=== PATIENT | male | born 1965 | race Caucasian/White ===

== ENCOUNTER 2019-10-02 13:38 | Inpatient (IN) | payer BC, OTHER ==
[~2019-10-02] VITALS: Ht 182.9 cm; Wt 59.5 kg
[2019-10-02 14:58] LABS: BASO # 0.1 10^3/uL (0.0-0.2); BASO % 0.7 % (0.0-1.0); EOS % 0.5 % (0.0-3.0); HEMATOCRIT 50.8 % (42.0-52.0); HEMOGLOBIN 16.4 g/dl (13.5-17.5); LYMPH # 1.2 10^3/uL (1.5-5.0); LYMPH % 15.6 % (24.0-44.0); MEAN CORPUSCULAR HEMOGLOBIN 29.1 pg (27.0-33.0); MEAN CORPUSCULAR HGB CONC 32.3 g/dl (32.0-36.5); MEAN CORPUSCULAR VOLUME 90.1 fl (80.0-96.0); MONO # 0.8 10^3/uL (0.0-0.8); MONO % 10.3 % (0.0-5.0); NEUTROPHILS # 5.6 10^3/uL (1.5-8.5); NEUTROPHILS % 72.5 % (36.0-66.0); PLATELET COUNT, AUTOMATED 314 10^3/uL (150-450); RED BLOOD COUNT 5.64 10^6/uL (4.30-6.10); WHITE BLOOD COUNT 7.7 10^3/uL (4.0-10.0)
--- NOTE | 2019-10-02 15:04 | REP ---
Portable chest, 02:37 p.m., single PA view: There are no comparisons. The lung hanna are hyperinflated. There are no infiltrates or pleural effusions. There are no masses or nodules. The cardiac size is normal. The meseret, mediastinum, skeletal structures are unremarkable. Impression: Hyperinflation, otherwise negative portable PA chest. Electronically Signed by Praveen Zamora MD 10/02/2019 02:55 P
[2019-10-02 15:07] LABS: INR 0.97; PROTHROMBIN TIME 12.6 SECONDS (11.8-14.0)
[2019-10-02 15:08] LABS: PARTIAL THROMBOPLASTIN TIME 33.5 SECONDS (25.0-38.4)
--- NOTE | 2019-10-02 15:15 | REP ---
CT brain without contrast: History: CVA. No comparison study. Findings: Preliminary digital laborer high density press radiograph is unremarkable. The visualized paranasal sinuses are clear. There is some vascular calcification in the carotid siphons bilaterally. There is mild generalized atrophy. On soft-tissue window settings, there is low density bilaterally within the central ysd consistent with old pontine lacunar infarction. There is no evidence of intracranial hemorrhage. There is a ill-defined 1 cm area of low density in the periventricular white matter of the right frontoparietal lobe region. This could be a recent periventricular lacunar infarct. There is no CT evidence of cortical infarction. Exam is otherwise unremarkable. Impression: Mild generalized atrophy and vascular calcification. Old appearing lacunar infarcts in the syd. Ill-defined 1 cm low density in the periventricular white matter of the right frontoparietal lobe may be a recent lacunar infarction. No evidence of intracranial hemorrhage or mass. Electronically Signed by Tito Joshi MD 10/02/2019 03:22 P
[2019-10-02 15:39] LABS: BLOOD UREA NITROGEN 13 MG/DL (7-18); CALCIUM LEVEL 9.4 MG/DL (8.5-10.1); CARBON DIOXIDE LEVEL 28 MEQ/L (21-32); CHLORIDE LEVEL 104 MEQ/L (98-107); CK-MB VALUE MASS 1.2 NG/ML (<3.6); CPK CREATINE PHOSPHOKINASE 110 U/L (39-308); CREATININE FOR GFR 0.91 MG/DL (0.70-1.30); GLOMERULAR FILTRATION RATE > 60.0 (>56); GLUCOSE, FASTING 131 MG/DL (70-100); MB/CK RELATIVE INDEX 1.09 (< OR =4); POTASSIUM SERUM 3.9 MEQ/L (3.5-5.1); SODIUM LEVEL 140 MEQ/L (136-145); TROPONIN I < 0.02 NG/ML (< 0.10)
[2019-10-02] MEDS ORDERED: LABETALOL HCL 100 MG/20 ML VIAL IV STA (17:14)
[2019-10-02] MEDS ORDERED: LORazepam 2 MG/ML VIAL (J2060) IV STA (17:14)
[2019-10-02] MEDS ORDERED: hydrALAZINE INJ 20 MG/ML VIAL IV PRN (17:15)
[2019-10-02] MEDS ORDERED: ASPIRIN 81 MG CHEW TABLET PO ONE (17:15)
--- NOTE | 2019-10-02 17:34 | HPEPDOC ---
[facility] Medical History & Physical Date of Admission Oct 02, 2019 Date of Service: Oct 02, 2019 Attending Physician: NACHO GRAVES MD History and Physical CHIEF COMPLAINT: Lower extremity weakness HISTORY OF PRESENT ILLNESS: 54-year-old male with no significant past medical history, presents with lower extremity weakness for the past 3-4 days. Patient does has not seen a doctor in many years, reports bilateral lower extremity weakness which started 4 days ago, has not improved or worsened since then, denies any associated symptoms. His does report that he has mild left-sided facial droop, left lower extremity weakness is slightly worse than right lower extremity. He denies any sensory deficits, denies any upper extremity symptoms. He denies any shortness of breath, chest pain, nausea, vomiting, abdominal pain or diarrhea at this time. In the ED, CT head shows old pontine lacunar infarct and likely recent right-sided paraventricular lacunar infarct. 10 point review of system is negative except for above PAST MEDICAL HISTORY: 1. None. PAST SURGICAL HISTORY: 1. None. SOCIAL HISTORY: Smokes 1.5 packs per day, hasn't smoked for 30 years. Drinks a sixpack every day. Denies drug use FAMILY HISTORY: No family history of cancer or heart disease ALLERGIES: Please see below. HOME MEDICATIONS: Please see below. PHYSICAL EXAMINATION: VITAL SIGNS: Please see below. GENERAL: No distress HEENT: Normocephalic, atraumatic, moist mucous membranes NECK: Supple CARDIOVASCULAR EXAMINATION: S1, S2, no murmurs RESPIRATORY EXAMINATION: Clear to auscultation, no wheezing ABDOMINAL EXAMINATION: Soft, nontender, nondistended, positive bowel sounds EXTREMITIES: Range of motion intact SKIN: No rash NEUROLOGICAL EXAMINATION: Alert and oriented 3, bilateral lower extremity weakness appreciated, left greater than right, difficulty ambulating, patient with shuffling gait, slight left-sided facial droop appreciated, no sensory deficits appreciated throughout. PSYCHIATRIC EXAMINATION: Calm and cooperative LABORATORY DATA: See below. IMAGING: CT head showing old pontine infarct and likely new right paraventricular pontine infarct MICROBIOLOGY: Please see below. ASSESSMENT: 54-year-old male who does not see physicians, smokes 1.5 pack per day is being admitted for acute/subacute stroke. PLAN: 1. Lacunar infarct. CT showing old pontine lacunar infarct and likely new infarct in the right paraventricular region, received aspirin 325 mg in the ED, continue aspirin 81 mg per day, add atorvastatin 40 mg daily, MRI brain, MRA head and neck along with TTE ordered. Neuro checks every 2 hours, neurology consulted (Dr. Arreaga) 2. Hypertension. Undiagnosed, SBP over 200, likely worsened by CVA, symptoms began 3 days ago, will begin controlling hypertension, labetalol 20 g IV ordered followed by hydralazine 10 mg IV as needed every 6 hours for SBP greater than 160. 3. Active smoker. Smoking cessation discussed in detail DVT prophylaxis: Heparin subcutaneous GI prophylaxis: Not needed Vital Signs Vital Signs Date Time Temp Pulse Resp B/P (MAP) Pulse Ox O2 Delivery O2 Flow Rate FiO2 10/02/19 16:15 95 18 191/104 (133) 94 10/02/19 14:17 Room Air 10/02/19 13:39 96.7 Laboratory Data Labs 24H Laboratory Tests 2 10/02/19 14:32: Immature Granulocyte % (Auto) 0.4, Neutrophils (%) (Auto) 72.5H, Lymphocytes (%) (Auto) 15.6L, Monocytes (%) (Auto) 10.3H, Eosinophils (%) (Auto) 0.5, Basophils (%) (Auto) 0.7, Neutrophils # (Auto) 5.6, Lymphocytes # (Auto) 1.2L, Monocytes # (Auto) 0.8, Eosinophils # (Auto) 0.0, Basophils # (Auto) 0.1, Nucleated Red Blood Cells % (auto) 0.0, Prothrombin Time 12.6, Prothromb Time International Ratio 0.97, Activated Partial Thromboplast Time 33.5, Anion Gap 8, Glomerular Filtration Rate > 60.0, Calcium Level 9.4, Total Creatine Kinase 110, Creatine Kinase MB 1.2, Creatine Kinase MB Relative Index 1.09, Troponin I < 0.02 CBC/BMP Laboratory Tests 10/02/19 14:32 Home Medications No Active Prescriptions or Reported Meds Allergies Coded Allergies: No Known Allergies (Unverified , 10/02/19) A-FIB/CHADSVASC A-FIB History Current/History of A-Fib/PAF?: No NACHO GRAVES MD Oct 02, 2019 17:34
[2019-10-02] MEDS: ASPIRIN 81 MG CHEW TABLET PO SCH (17:47)
[2019-10-02] MEDS ORDERED: LORazepam 2 MG/ML VIAL (J2060) As Ordered ONE (17:50)
[2019-10-02 18:43] VITALS: BP 180/100
--- NOTE | 2019-10-02 19:17 | ECGEPIP ---
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
[2019-10-02 20:00] VITALS: BP 160/102
--- NOTE | 2019-10-02 20:46 | REPVR ---
PROCEDURE INFORMATION: Exam: MR Head Without Contrast Exam date and time: 10/02/2019 8:22 PM Age: 54 years old Clinical indication: Walking, difficulty; Patient HX: Falls; Additional info: CVA TECHNIQUE: Imaging protocol: MR of the head without contrast. COMPARISON: CT Head without contrast 10/02/2019 2:29 PM FINDINGS: Brain: Focus of restricted diffusion within the right frontoparietal centrum semiovale, concerning for acute infarct. Multiple chronic small bilateral basal ganglia and pontine lacunar infarcts. Nonspecific T2/FLAIR hyperintensities of the periventricular and deep subcortical white matter, most likely secondary to chronic small vessel ischemic change. No intracranial hemorrhage or extra-axial fluid collection. No evidence of mass effect or midline shift. Ventricles: No ventriculomegaly. Bones/joints: Unremarkable. Soft tissues: Unremarkable. Sinuses: Severe mucosal thickening of the left maxillary sinus. Mastoid air cells: No mastoid effusion. Orbits: Unremarkable. IMPRESSION: 1. Focus of restricted diffusion within the right frontoparietal centrum semiovale, concerning for acute infarct. 2. Severe mucosal thickening of the left maxillary sinus. 3. Other chronic findings, as above. Electronically signed by: Sanford Acosta On 10/02/2019 20:45:53 PM
--- NOTE | 2019-10-02 20:47 | REPVR ---
PROCEDURE INFORMATION: Exam: MR Angiography Neck Without Contrast Exam date and time: 10/02/2019 8:29 PM Age: 54 years old Clinical indication: Weakness; Patient HX: Falls; Additional info: CVA TECHNIQUE: Imaging protocol: Magnetic resonance angiography of the neck without contrast. 3D rendering: MIP and/or 3D reconstructed images were created by the technologist. COMPARISON: MRA BRAIN W/O CONTRAST 10/02/2019 8:08 PM FINDINGS: Right common carotid artery: No significant stenosis or occlusion. Right internal carotid artery: Extracranial segment is patent without evidence of hemodynamically significant stenosis. Right external carotid artery: Unremarkable. Right vertebral artery: No significant stenosis or occlusion. Left common carotid artery: No significant stenosis or occlusion. Left internal carotid artery: Extracranial segment is patent without evidence of hemodynamically significant stenosis. Left external carotid artery: Unremarkable. Left vertebral artery: No significant stenosis or occlusion. IMPRESSION: No hemodynamically significant stenosis. COMMENT: Reference per NASCET criteria for degree of stenosis: Mild: less than 50% stenosis. Moderate: 50-69% stenosis. Severe: 70-94% stenosis. Near occlusion: 95-99% stenosis. Electronically signed by: Sanford Acosta On 10/02/2019 20:47:37 PM
--- NOTE | 2019-10-02 20:47 | REPVR ---
PROCEDURE INFORMATION: Exam: MR Angiogram Head Without Contrast, Arteries Exam date and time: 10/02/2019 8:22 PM Age: 54 years old Clinical indication: Weakness; Additional info: CVA TECHNIQUE: Imaging protocol: MR angiogram head without contrast. Exam focused on the arteries. COMPARISON: MRI-Brain without Contrast 10/02/2019 7:51 PM FINDINGS: Right internal carotid artery: Unremarkable. Intracranial segment is patent with no significant stenosis. No aneurysm. Right anterior cerebral artery: Unremarkable. No occlusion or significant stenosis. No aneurysm. Right middle cerebral artery: Unremarkable. No occlusion or significant stenosis. No aneurysm. Right posterior cerebral artery: Unremarkable. No occlusion or significant stenosis. No aneurysm. Right vertebral artery: Unremarkable. No occlusion or significant stenosis. No aneurysm. Left internal carotid artery: Unremarkable. Intracranial segment is patent with no significant stenosis. No aneurysm. Left anterior cerebral artery: Unremarkable. No occlusion or significant stenosis. No aneurysm. Left middle cerebral artery: Unremarkable. No occlusion or significant stenosis. No aneurysm. Left posterior cerebral artery: Unremarkable. No occlusion or significant stenosis. No aneurysm. Left vertebral artery: Unremarkable. No occlusion or significant stenosis. No aneurysm. Basilar artery: Unremarkable. No occlusion or significant stenosis. No aneurysm. IMPRESSION: No MRA evidence of intracranial arterial occlusion or significant stenosis. Electronically signed by: Sanford Acosta On 10/02/2019 20:46:55 PM
[2019-10-02 20:56] VITALS: BP 160/90
[2019-10-02] MEDS: HEPARIN SOD (PORCINE) 5000 UNITS/ML VIAL (J1644 PER 1000UNITS) SC SCH (21:00)
[2019-10-02] MEDS: ATORVASTATIN 20 MG TAB PO SCH (21:00)
[2019-10-03] VITALS (9 sets, daily range): BP systolic 134–179; BP diastolic 74–100
[2019-10-03 05:54] LABS: HEMATOCRIT 42.8 % (42.0-52.0); HEMOGLOBIN 14.2 g/dl (13.5-17.5); MEAN CORPUSCULAR HEMOGLOBIN 29.8 pg (27.0-33.0); MEAN CORPUSCULAR HGB CONC 33.2 g/dl (32.0-36.5); MEAN CORPUSCULAR VOLUME 89.7 fl (80.0-96.0); PLATELET COUNT, AUTOMATED 285 10^3/uL (150-450); RED BLOOD COUNT 4.77 10^6/uL (4.30-6.10); WHITE BLOOD COUNT 5.6 10^3/uL (4.0-10.0)
[2019-10-03 06:20] LABS: ALBUMIN 3.6 GM/DL (3.2-5.2); ALT/SGPT 21 U/L (12-78); BILIRUBIN,TOTAL 0.1 MG/DL (0.2-1.0); BLOOD UREA NITROGEN 17 MG/DL (7-18); CALCIUM LEVEL 9.7 MG/DL (8.5-10.1); CARBON DIOXIDE LEVEL 30 MEQ/L (21-32); CHLORIDE LEVEL 107 MEQ/L (98-107); CHOLESTEROL LEVEL 174 MG/DL (<200); CHOLESTEROL RISK RATIO 2.558 (<5); CREATININE FOR GFR 0.93 MG/DL (0.70-1.30); GLOMERULAR FILTRATION RATE > 60.0 (>56); GLUCOSE, FASTING 122 MG/DL (70-100); HDL CHOLESTEROL 68 MG/DL (>40); LDL CHOLESTEROL 86 MG/DL (<100); MAGNESIUM LEVEL 2.3 MG/DL (1.8-2.4); NON-HDL-C 106 MG/DL; POTASSIUM SERUM 3.4 MEQ/L (3.5-5.1); SODIUM LEVEL 141 MEQ/L (136-145); TOTAL PROTEIN 7.1 GM/DL (6.4-8.2); TRIGLYCERIDES LEVEL 98 MG/DL (<150)
[2019-10-03] MEDS: HEPARIN SOD (PORCINE) 5000 UNITS/ML VIAL (J1644 PER 1000UNITS) SC SCH ×3 (06:27→20:37)
[2019-10-03] MEDS: ASPIRIN 81 MG CHEW TABLET PO SCH (07:59)
[2019-10-03] MEDS: NICOTINE 21MG/24HR 1 EA TRANSDERMAL TD SCH (08:22)
[2019-10-03] MEDS: amLODIPine 10 MG TAB PO SCH (08:22)
[2019-10-03] MEDS: POTASSIUM CHLORIDE 10 MEQ SR TABLET PO SCH ×2 (08:22→14:01)
[2019-10-03] MEDS ORDERED: METOPROLOL TART 25 MG TABLET PO ONE (13:00)
--- NOTE | 2019-10-03 15:10 | CR ---
DATE OF NEUROLOGY CONSULTATION: 10/03/2019 REFERRING PROVIDER: Linda Hendricks MD Date of admission: 10/02/2019 HISTORY OF PRESENT ILLNESS Jim Singh is a 54-year-old male who did not have any prior documented medical history due to the patient not seeing any doctors for several years. The patient presented with difficulty using his left leg while he was at work. This occurred a few days ago on Wednesday. The patient states that he was noted by his to have slight facial droop on the left side as well. The patient was seen at emergency department and head CT revealed possibility of having a right-sided periventricular acute stroke. The patient was admitted to the hospital. He was started on aspirin 81 mg daily and given Lipitor 40 mg daily as well. The patient did have an MRI which confirmed acute stroke of the semiovale on the right consistent with left arm and leg weakness noted on exam. Facial asymmetry seemed to resolve by the time I had seen him in the ER. The patient is 1-1/2 pack per day smoker and drinks a six-pack of beer every day. He has been counseled to quit tobacco and cut back gradually on his alcohol intake over the next few weeks and discontinue. He will need echocardiogram. MR angiogram of the head and neck did not reveal any critical stenosis. PAST MEDICAL HISTORY: None prior. PAST SURGICAL HISTORY: None prior. SOCIAL HISTORY: The patient smokes 1-1/2 half pack of tobacco per day, drinks a 6 pack of alcohol, beer per day. Denies any drug use. FAMILY HISTORY: Noncontributory. ALLERGIES: NO KNOWN DRUG ALLERGIES. HOME MEDICATIONS: None. REVIEW OF SYSTEMS: 14-point review of systems obtained and is negative except as per HPI. PHYSICAL EXAMINATION Blood pressure is 191/104, pulse rate is 95, respiratory rate is 18, temperature is 96.7 degrees Fahrenheit, oxygenation 94% on room air. The patient presented with a blood pressure of 220/100. The patient is awake, alert, oriented to person, place and time. Speech, language and comprehension are intact. Pupils are 3 mm round, react to light. Extraocular movements are intact in all directions without nystagmus. Sensation: V1, V2, V3 is intact to light touch. No facial asymmetry on activation. Palate elevates symmetrically. There is no weakness of sternocleidomastoids bilaterally. Hearing is subjectively equal to finger rub. There is no pronator drift. The patient has weakness in his left deltoid, left triceps, grade 4/5, biceps are 5/5, wrist extensor on the left is a 5-, iliopsoas on the left is a 4/5, quadriceps are 5/5, tibialis anterior on the left leg is a 5-, right-sided muscle testing is 5/5. Sensory is intact to light touch in all four extremities. Deep tendon reflexes are increased on the left side and 2+ on the left side. Babinski signs are mute. Coordination: Normal [id number] without any signs of gross ataxia or dysmetria. Romberg testing deferred. ASSESSMENT Acute ischemic stroke of the right centrum semiovale resulting in left-sided hemiparesis involving the leg more than the arm. PLAN 1. Gradually optimize hypertension in the next 12 hours. Continue aspirin 81 mg by mouth daily, atorvastatin 40 mg by mouth daily. Obtain echocardiogram. Continue telemetry monitoring. Check fasting lipid profile, TSH, hemoglobin A1c. 2. Smoking cessation and alcohol cessation counseling provided to the patient. 3. History obtained from both the patient and the patient's . The patient will follow up in the [facility]rology clinic after completing stroke workup in the next 4 to 6 weeks.
--- NOTE | 2019-10-03 16:36 | IPNPDOC ---
Date Seen The patient was seen on 10/03/19. Progress Note HISTORY OF PRESENT ILLNESS: 54-year-old male with no significant past medical history, presents with lower extremity weakness for the past 3-4 days. Patient does has not seen a doctor in many years, reports bilateral lower extremity weakness which started 4 days ago, has not improved or worsened since then, denies any associated symptoms. His does report that he has mild left-sided facial droop, left lower extremity weakness is slightly worse than right lower extremity. He denies any sensory deficits, denies any upper extremity symptoms. He denies any shortness of breath, chest pain, nausea, vomiting, abdominal pain or diarrhea at this time. In the ED, CT head shows old pontine lacunar infarct and likely recent right-sided paraventricular lacunar infarct. 10/03/19 Patient comfortable overnight, MRI positive for acute stroke, working with physical therapy, no new complaints. 10 point review of system is negative except for above PHYSICAL EXAMINATION: VITAL SIGNS: Please see below. GENERAL: No distress HEENT: Normocephalic, atraumatic, moist mucous membranes NECK: Supple CARDIOVASCULAR EXAMINATION: S1, S2, no murmurs RESPIRATORY EXAMINATION: Clear to auscultation, no wheezing ABDOMINAL EXAMINATION: Soft, nontender, nondistended, positive bowel sounds EXTREMITIES: Range of motion intact SKIN: No rash NEUROLOGICAL EXAMINATION: Alert and oriented 3, bilateral lower extremity weakness appreciated, left greater than right, improved from yesterday, no sensory deficits appreciated throughout. PSYCHIATRIC EXAMINATION: Calm and cooperative LABORATORY DATA: See below. IMAGING: CT head showing old pontine infarct and likely new right paraventricular pontine infarct MICROBIOLOGY: Please see below. ASSESSMENT: 54-year-old male who does not see physicians, smokes 1.5 pack per day is being admitted for acute/subacute stroke. PLAN: 1. Lacunar infarct. MRI confirmed acute infarct with multiple old lacunar infarcts, likely due to chronic uncontrolled hypertension and smoking, continue aspirin 81 mg per day and atorvastatin 40 mg daily, MRA head and neck negative, TTE pending, neurology consult pending. 2. Hypertension. BP remains elevated on Norvasc 10 mg daily, will add metoprolol 25 mg twice a day as patient is also tachycardic, will adjust regimen based on patient's blood pressure. 3. Active smoker. Nicotine patch DVT prophylaxis: Heparin subcutaneous GI prophylaxis: Not needed VS, I&O, 24H, [employer] Vital Signs/I&O Vital Signs Date Time Temp Pulse Resp B/P (MAP) Pulse Ox O2 Delivery O2 Flow Rate FiO2 10/03/19 14:03 83 155/78 (103) 10/03/19 12:00 98.2 20 94 Room Air I&O- Last 24 Hours up to 6 AM 10/03/19 06:00 Intake Total 0 ml Output Total 0 ml Balance 0 ml Laboratory Data 24H LABS Laboratory Tests 2 10/03/19 05:18: Nucleated Red Blood Cells % (auto) 0.0, Anion Gap 4L, Glomerular Filtration Rate > 60.0, Calcium Level 9.7, Magnesium Level 2.3, Total Bilirubin 0.1L, Aspartate Amino Transf (AST/SGOT) 14, Alanine Aminotransferase (ALT/SGPT) 21, Alkaline Phosphatase 73, Total Protein 7.1, Albumin 3.6, Albumin/Globulin Ratio 1.03, Triglycerides Level 98, Total Cholesterol 174, LDL Cholesterol 86, Non-HDL Cholesterol (LDL + VLDL) 106, Total HDL Cholesterol 68, Cholesterol/HDL Ratio 2.558 CBC/BMP Laboratory Tests 10/03/19 05:18 NACHO GRAVES MD Oct 03, 2019 16:36
[2019-10-03] MEDS: ATORVASTATIN 20 MG TAB PO SCH (20:37)
[2019-10-03] MEDS ORDERED: METOPROLOL TART 25 MG TABLET PO SCH (21:00)
--- NOTE | 2019-10-03 23:20 | ECHO ---
DATE OF PROCEDURE: 10/03/2019 REFERRING PHYSICIAN: Dr. Linda Hendricks INDICATION: Acute stroke. HEIGHT: 183 cm WEIGHT: 62 kg 2D MEASUREMENTS: Ventricular septum: 1.04 cm Posterior wall: 1.12 cm Left ventricle diastole: 4.6 cm Aortic root: 3.4 cm Left atrium: 2.5 cm Left atrial volume index: 16 Inferior vena cava: 1.6 cm DOPPLER MEASUREMENTS: No aortic regurgitation. No mitral regurgitation. No tricuspid regurgitation. No pulmonic regurgitation. Aortic valve velocity: 146 cm/s LVOT velocity: 112 cm/s LVOT VTI: 22.2 cm Pulmonary artery systolic pressure: 12 mmHg MITRAL ANNULAR TISSUE DOPPLER: E prime lateral: 9.6 cm/s E prime septal: 6.14 cm/s DESCRIPTION: Rhythm was sinus rhythm and sinus tachycardia observed. This was a moderately technically difficult echocardiogram. This was a 2D, M-mode, color flow Doppler and pulse wave Doppler examination and included mitral annular tissue Doppler. No pericardial effusion. CONCLUSIONS: 1. Normal left ventricle internal dimensions and wall thickness. Normal regional left ventricular (LV) wall motion and wall thickening. Normal LV systolic function. Left ventricular ejection fraction (LVEF) 65% by visual estimate. Incomplete assessment of LV diastolic function and difficult to assess due to sinus tachycardia. 2. Moderately technically difficult echocardiogram. 3. Otherwise normal appearing echocardiogram Doppler findings.
[2019-10-04] VITALS: BP 152/90
[2019-10-04 04:00] VITALS: BP 159/89
[2019-10-04] MEDS: HEPARIN SOD (PORCINE) 5000 UNITS/ML VIAL (J1644 PER 1000UNITS) SC SCH ×2 (05:28→14:00)
[2019-10-04 05:53] LABS: HEMOGLOBIN 13.9 g/dl (13.5-17.5); MEAN CORPUSCULAR HEMOGLOBIN 29.3 pg (27.0-33.0); MEAN CORPUSCULAR HGB CONC 31.6 g/dl (32.0-36.5); MEAN CORPUSCULAR VOLUME 92.6 fl (80.0-96.0); PLATELET COUNT, AUTOMATED 265 10^3/uL (150-450); RED BLOOD COUNT 4.75 10^6/uL (4.30-6.10); WHITE BLOOD COUNT 5.6 10^3/uL (4.0-10.0)
[2019-10-04 06:12] LABS: HEMOGLOBIN A1c 5.9 %
[2019-10-04 06:16] LABS: BLOOD UREA NITROGEN 16 MG/DL (7-18); CALCIUM LEVEL 9.4 MG/DL (8.5-10.1); CARBON DIOXIDE LEVEL 28 MEQ/L (21-32); CHLORIDE LEVEL 112 MEQ/L (98-107); CREATININE FOR GFR 0.86 MG/DL (0.70-1.30); GLOMERULAR FILTRATION RATE > 60.0 (>56); GLUCOSE, FASTING 112 MG/DL (70-100); PHOSPHORUS LEVEL 3.2 MG/DL (2.5-4.9); SODIUM LEVEL 145 MEQ/L (136-145)
[2019-10-04 08:00] VITALS: BP 162/88
[2019-10-04] MEDS: ASPIRIN 81 MG CHEW TABLET PO SCH (08:42)
[2019-10-04] MEDS: NICOTINE 21MG/24HR 1 EA TRANSDERMAL TD SCH (08:42)
[2019-10-04 08:43] VITALS: BP 162/88
[2019-10-04] MEDS: amLODIPine 10 MG TAB PO SCH (08:43)
[2019-10-04] MEDS ORDERED: METOPROLOL TART 50 MG TAB PO SCH (09:00)
[2019-10-04] MEDS ORDERED: LOPR1TAB6 PO (12:48)
[2019-10-04] MEDS ORDERED: VARE05TA PO (12:48)
[2019-10-04] MEDS ORDERED: ATOR1TAB21 PO (12:48)
[2019-10-04] MEDS ORDERED: AMLO10TA5 PO (12:48)
[2019-10-04] MEDS ORDERED: ASPI81CH8 PO (12:48)
--- NOTE | 2019-10-04 17:37 | DS.PDOC ---
Discharge Summary General Date of Admission Oct 02, 2019 at 17:14 Date of Discharge 10/04/19 Attending Physician: NACHO GRAVES MD Discharge Summary PROCEDURES PERFORMED DURING STAY: None. ADMITTING DIAGNOSES: 1. Acute lacunar infarct. DISCHARGE DIAGNOSES: 1. Acute lacunar infarct, uncontrolled hypertension. COMPLICATIONS/CHIEF COMPLAINT: CVA. HISTORY OF PRESENT ILLNESS: 54-year-old male with no significant past medical history, has not seen a physician in many years, was admitted for acute right- sided lacunar infarct with significant bilateral lotion every weakness. Sallie wei's MRI was consistent with multiple old lacunar infarcts in addition to the acute infarct. Patient does not carry any prior diagnoses, has not seen physicians in years, is an active smoker and had significantly elevated blood pressure throughout hospitalization. Patient likely has undiagnosed hype rtension, patient was started on Norvasc and metoprolol with somewhat reasonable blood pressure control. Patient is strongly advised to follow up closely with her primary care physician for medication adjustment and proper blood pressure control. Patient was invalid by neurology and started on aspirin and atorvastatin. Patient is recommended to follow with neurologist in the outpatient setting. Patient was evaluated by physical therapy and cleared for discharge home. Multiple discussions were had with patient and family regarding smoking cessation, patient requesting Chantix, provided initial prescription and strongly recommended outpatient follow-up; patient and family are agreeable at this time with discharge planning. HOSPITAL COURSE: As above. DISCHARGE MEDICATIONS: Please see below. ALLERGIES: Please see below. PHYSICAL EXAMINATION: VITAL SIGNS: Please see below. GENERAL: No distress HEENT: Normocephalic, atraumatic, moist mucous membranes NECK: Supple CARDIOVASCULAR EXAMINATION: S1, S2, no murmurs RESPIRATORY EXAMINATION: Clear to auscultation, no wheezing ABDOMINAL EXAMINATION: Soft, nontender, nondistended, positive bowel sounds EXTREMITIES: Range of motion intact SKIN: No rash NEUROLOGICAL EXAMINATION: Alert and oriented 3, bilateral lower extremity weakness with significant improvement, still having gait abnormality, no sensory deficits appreciated PSYCHIATRIC EXAMINATION: Calm and cooperative LABORATORY DATA: Please see below. IMAGING: MRI showing acute lacunar infarct in the right frontoparietal region with multiple old lacunar infarcts PROGNOSIS: Fair ACTIVITY: As tolerated. DIET: Cardiac DISCHARGE PLAN: Follow with PCP and neurologist within 1-2 weeks DISPOSITION: 01 Home, Self-Care. DISCHARGE INSTRUCTIONS: 1. As above. DISCHARGE CONDITION: Stable. TIME SPENT ON DISCHARGE: Greater than 34 minutes. Vital Signs/I&Os Vital Signs Date Time Temp Pulse Resp B/P (MAP) Pulse Ox O2 Delivery O2 Flow Rate FiO2 10/04/19 08:43 84 162/88 10/04/19 08:00 98.1 18 91 Room Air I&O- Last 24 Hours up to 6 AM 10/04/19 06:00 Intake Total 360 ml Output Total 175 ml Balance 185 ml Laboratory Data Labs 24H Laboratory Tests 2 10/04/19 05:27: Nucleated Red Blood Cells % (auto) 0.0, Anion Gap 5L, Glomerular Filtration Rate > 60.0, Estimated Mean Plasma Glucose 123H, Hemoglobin A1c 5.9, Calcium Level 9 .4, Phosphorus Level 3.2 CBC/BMP Laboratory Tests 10/04/19 05:27 Discharge Medications Scheduled Amlodipine Besylate (Amlodipine Besylate) 10 Mg Tablet, 10 MG PO DAILY Aspirin (Children's Aspirin) 81 Mg Tab.chew, 81 MG PO DAILY Atorvastatin Calcium (Atorvastatin Calcium) 20 Mg Tablet, 40 MG PO QHS Metoprolol Tartrate (Lopressor) 50 Mg Tablet, 50 MG PO BID Varenicline (Chantix) 0.5 Mg Tablet, 0.5 MG PO BID Day 1-3: 0.5 mg daily Day 4-7: 0.5 mg twice a day Day 8+: 1 mg BID Allergies Coded Allergies: No Known Allergies (Unverified , 10/02/19) NACHO GRAVES MD Oct 04, 2019 17:37
== END 2019-10-04 16:54 | disposition home or self-care (01) | DRG 45 ==
LOC: M ED 13:38 → M ED INP 17:14 → ENRESERV 18:00 → M PCU 18:35
PROVIDERS: ADMIT Internal Medicine; ATTEND Internal Medicine
DX: I63.521 Cerebral infarction due to unspecified occlusion or stenosis of right anterior cerebral artery (principal); G81.92 Hemiplegia, unspecified affecting left dominant side; I10 Essential (primary) hypertension; F17.200 Nicotine dependence, unspecified, uncomplicated; R29.810 Facial weakness

== ENCOUNTER → 2019-11-02 | Outpatient (CLI) | payer BC, OTHER ==
[~2019-11-02] MED LIST: AMLO10TA5 PO; ASPI81CH8 PO; ATOR1TAB21 PO; LOPR1TAB6 PO; VARE05TA PO
--- NOTE | 2019-11-02 16:18 | REPVR ---
PROCEDURE INFORMATION: Exam: CT Chest Without Contrast Exam date and time: 11/02/2019 3:44 PM Age: 54 years old Clinical indication: Cough TECHNIQUE: Imaging protocol: Computed tomography of the chest without contrast. 3D rendering: MIP and/or 3D reconstructed images were created by the technologist. Radiation optimization: All CT scans at this facility use at least one of these dose optimization techniques: automated exposure control; mA and/or kV adjustment per patient size (includes targeted exams where dose is matched to clinical indication); or iterative reconstruction. COMPARISON: [facility] PORTABLE CHEST X-RAY 10/02/2019 2:37 PM FINDINGS: Lungs: Small pleural based focus of atelectasis or parenchymal scarring in the left lower lobe, image 90. Minimal atelectasis is seen at the medial margin of the right middle lobe and in the dependent lower lobes bilaterally, greater on the right. Pleural space: No pleural effusion. No pneumothorax. Heart: Unremarkable. No cardiomegaly. No pericardial effusion. Aorta: Atherosclerotic vascular disease is noted. Lymph nodes: Mediastinal lymph nodes are within upper limits of normal size. Bones/joints: No acute osseous abnormality is detected. Soft tissues: Unremarkable. IMPRESSION: Minimal atelectasis in both lungs, as above. Electronically signed by: Lorraine Damon On 11/02/2019 16:17:53 PM
== END ==
LOC: M RAD 15:34
PROVIDERS: ATTEND Nurse Practitioner Adult Health
DX: R05 Cough (principal)

== ENCOUNTER → 2023-01-06 | Outpatient (CLI) | payer MEDICARE, BC, OTHER ==
[~2023-01-06] MED LIST changes: -AMLO10TA5 PO; +AMLO1TAB25 PO
== END ==
LOC: M RAD 16:18
PROVIDERS: ATTEND Internal Medicine
DX: Z12.2 Encounter for screening for malignant neoplasm of respiratory organs (principal); F17.210 Nicotine dependence, cigarettes, uncomplicated